=== PATIENT | female | born 1995 | race Caucasian/White ===

== ENCOUNTER 2023-02-02 19:15 | Emergency (ER) | payer OTHER, SELFPAY ==
[2023-02-02 19:25] VITALS: BP 122/88; PULSE 80; RESP 20; TEMP 36.6; O2SAT 99; BMI 35.2
[2023-02-02] MEDS: METOCLOPRAMIDE 10 MG/2 ML INJ IV (20:13)
[2023-02-02] MEDS: SODIUM CHLORIDE 0.9% 1,000 ML 1000 ML IV (20:13)
[2023-02-02 20:20] LABS: Add Manual Diff / Slide Review NO; Basophils Absolute Auto 0 /uL (0-100); Basophils Percent Auto 0.4 % (0-2); Eosinophils Absolute Auto 0 /uL (0-450); Eosinophils Percent Auto 0.3 % (2-4); Hematocrit 37.4 % (36-46); Hemoglobin 12.9 g/dL (12.0-16.0); Lymphocytes Absolute Auto 2300 /uL (1100-4500); Lymphocytes Percent Auto 18.2 % (25-40); Mean Corpuscular HGB Conc 34.5 % (30-36); Mean Corpuscular Hemoglobin 29.6 PG (26-34); Mean Corpuscular Volume 85.6 fL (80-100); Monocytes Absolute Auto 500 /uL (0-900); Monocytes Percent Auto 3.9 % (3-14); Neutrophils Absolute Auto 9600 /uL (1500-7000); Neutrophils Percent Auto 77.2 % (50-75); Platelet Count 267 X10^3/uL (150-400); Red Blood Cell Count 4.37 X10^6/uL (4.0-5.2); Red Cell Distribution Width 14.5 % (11.6-14.8); White Blood Cell Count 12.5 X10^3/uL (4.5-11.0)
[2023-02-02 20:33] LABS: Alanine Aminotransferase 17 IU/L (<35); Albumin 3.9 g/dL (3.5-5.0); Albumin Globulin Ratio 1.1 (1.0-2.8); Alkaline Phosphatase 55 U/L (38-126); Aspartate Aminotransferase 23 IU/L (14-36); BUN Creatinine Ratio 24.5 (6-22); Bilirubin Total 0.3 mg/dL (0.2-1.3); Blood Urea Nitrogen 13 mg/dL (7-17); Calcium 8.8 mg/dL (8.4-10.2); Carbon Dioxide 21 mmol/L (22-32); Chloride 103 mmol/L (98-107); Estimated Glomerular Filt Rate > 60 mL/min (>60); Globulin 3.4 g/dL (1.7-4.1); Glucose 85 mg/dL (70-100); HEMOLYSIS < 15 (0-50); Sodium 135 mmol/L (137-145); Total Protein 7.3 g/dL (6.3-8.2)
--- NOTE | 2023-02-02 20:33 | ED_ITS ---
HPI - Nausea/Vomiting/Diarrhea General Chief complaint: Nausea/Vomiting/Diarrhea Stated complaint: hypernemesis Time Seen by Provider: 02/02/23 21:10 Source: patient Mode of arrival: Wheelchair History of Present Illness HPI Narrative: Patient is a 47-year-old female presenting today with nausea vomiting. She is currently 16 weeks reports that she is been vomiting daily her whole today she threw up significantly more amounts previously. She reports [employer] does not work for her. She denies any significant abdominal pain or vaginal bleeding. She was previously dizzy and lightheaded she is now received a L of fluid and Reglan overall feeling much better. She is [place] to get insurance to approve regular IV infusions for her but they have not yet. She reports that during her last she vomited until the end Related Data Previous Rx's Medication Instructions Recorded metoclopramide HCl 10 mg tablet 10 mg PO Q6H PRN nausea and 02/02/23 (Reglan) vomiting #30 tabs Allergies Allergy/AdvReac Type Severity Reaction Status Date / Time No Known Drug Allergies Allergy Verified 02/02/23 19:46 Review of Systems Review of Systems ROS Unobtainable: All systems reviewed & are unremarkable except as noted in HPI and below Patient History Social History Smoking Status: Never smoker Smoking Status: Never smoker Substance Use Type: does not use Exam Initial Vital Signs Initial Vital Signs: Vital Signs Temperature 97.9 F 02/02/23 19:25 Pulse Rate 80 02/02/23 19:25 Respiratory Rate 20 02/02/23 19:25 Blood Pressure 122/88 02/02/23 19:25 Pulse Oximetry 99 02/02/23 19:25 Oxygen Delivery Method Room Air 02/02/23 19:25 GENERAL: Alert 27-year-old female and in no acute distress. HEENT: Head atraumatic,EOMI, pupils reactive, face symmetric, moist mucous membranes CARDIOVASCULAR: Regular rate and rhythm without murmurs, rubs or gallops. RESPIRATORY: Breath sounds equal bilaterally, no wheezes rales or rhonchi. ABDOMEN: Soft, nontender. Normoactive bowel sounds all 4 quadrants. No guarding or rebound. Gravid nontender EXTREMITIES: Normal range of motion, no clubbing or edema. Neurovascularly intact NEUROLOGICAL: Alert and oriented x4.Normal gait and speech. SKIN: Warm, dry, no laceration, no petechiae, no rashes or lesions. Course Orders Ordered: ED Orders 02/02/23 20:09 CBC Auto Diff [Complete Blood Count AUTO DIFF] Stat CMP [Comprehensive Metabolic Panel] Stat 02/02/23 21:16 Urine Microscopic Stat Discontinued Medications Sodium Chloride (Normal Saline 0.9%) 1,000 mls @ 1,000 mls/hr IV BOLUS ONE Stop: 02/02/23 20:43 Last Infusion: 02/02/23 21:23 Dose: 0 mls/hr Documented By: Admin: 02/02/23 20:13 Dose: 1,000 mls/hr Documented By: DOMONIQUE Metoclopramide HCl (Metoclopramide 10 Mg/2 Ml Inj) 10 mg IV NOW ONE Stop: 02/02/23 19:46 Last Admin: 02/02/23 20:13 Dose: 10 mg Documented By: DOMONIQUE Vital Signs Vital signs: Vital Signs - 8 hr 02/02/23 19:25 02/02/23 20:51 02/02/23 20:51 Temperature 97.9 F Pulse Rate 80 78 Respiratory Rate 20 Blood Pressure 122/88 104/52 L Pulse Oximetry 99 100 Oxygen Delivery Method Room Air Room Air 02/02/23 21:00 02/02/23 21:00 02/02/23 21:30 Temperature Pulse Rate 89 Respiratory Rate Blood Pressure 113/64 95/54 L Pulse Oximetry 100 Oxygen Delivery Method Room Air 02/02/23 21:30 02/02/23 21:42 02/02/23 21:42 Temperature Pulse Rate 73 82 Respiratory Rate Blood Pressure 101/59 L Pulse Oximetry 100 100 Oxygen Delivery Method Room Air Room Air MDM - Nausea/Vomiting/Diarrhea Lab Data 02/02/23 20:09 02/02/23 20:09 Labs: Lab Results 02/02/23 02/02/23 02/02/23 Range/Units 20:09 20:09 21:16 WBC 12.5 H (4.5-11.0) X10^3/uL RBC 4.37 (4.0-5.2) X10^6/uL Hgb 12.9 (12.0-16.0) g/dL Hct 37.4 (36-46) % MCV 85.6 (80-100) fL MCH 29.6 (26-34) PG MCHC 34.5 (30-36) % RDW 14.5 (11.6-14.8) % Plt Count 267 (150-400) X10^3/uL Neut % (Auto) 77.2 H (50-75) % Lymph % (Auto) 18.2 L (25-40) % [place] % (Auto) 3.9 (3-14) % Eos % (Auto) 0.3 L (2-4) % Baso % (Auto) 0.4 (0-2) % Neut # (Auto) 9600 H (0559-4420) /uL Lymph # (Auto) 2300 (0805-3501) /uL [place] # (Auto) 500 (0-900) /uL Eos # (Auto) 0 (0-450) /uL Baso # (Auto) 0 (0-100) /uL Sodium 135 L (137-145) mmol/L Potassium 4.0 (3.4-5.1) mmol/L Chloride 103 (98-107) mmol/L Carbon Dioxide 21 L (22-32) mmol/L BUN 13 (7-17) mg/dL Creatinine 0.53 (0.52-1.04) mg/dL Estimated GFR > 60 (>60) mL/min BUN/Creatinine Ratio 24.5 H (6-22) Glucose 85 (70-100) mg/dL Calcium 8.8 (8.4-10.2) mg/dL Total Bilirubin 0.3 (0.2-1.3) mg/dL AST 23 (14-36) IU/L ALT 17 (<35) IU/L Alkaline Phosphatase 55 (38-126) U/L Total Protein 7.3 (6.3-8.2) g/dL Albumin 3.9 (3.5-5.0) g/dL Globulin 3.4 (1.7-4.1) g/dL Albumin/Globulin Ratio 1.1 (1.0-2.8) Urine RBC 0-1/hpf (0-5/HPF) Urine WBC 0-1/hpf (0-5/HPF) Ur Squamous Epith Cells 5-10 /hpf H (0-5/HPF) Ur Transition Epith Cell 0-1/hpf (0-5/HPF) Other Crystals Few amorphous Urine Bacteria None seen (None) Ur Culture Indicated? Cult not indicated Urine Dip Bedside Urine Glucose Negative Bedside Urine Bilirubin + 1 Bedside Urine Ketone +/- 5 Urine Specific [place] 1.010 Bedside Urine Occult Blood - Negative Bedside Urine pH 7.5 Bedside Urine Protein + 30 Bedside Urine Urobilinogen - Negative Bedside Urine Nitrite - Negative Bedside Urine Leukocytes - Negative Esterase MDM Narrative Medical decision making narrative: Patient is a 27-year-old female hyperemesis gravidarum presenting today with nausea vomiting. Was dizzy and lightheaded now feeling better after fluids and Reglan. Urinalysis does not any evidence of UTI blood work has been reviewed no evidence of significant electrolyte abnormality no elevated WBC. At this time she is tolerating fluids and can go home. heart tones 150. Discharge Plan Departure Patient Disposition: Home Clinical Impression: Hyperemesis gravidarum Instructions: DI for Hyperemesis Gravidarum Activity Restrictions/Additional Instructions: *You have been diagnosed with hyperemesis gravidarum *What to do: Increase fluids as tolerated recommend Pedialyte or Gatorade *Continue to take medications as directed Reglan 10 mg every 6 hours if needed for nausea vomiting--> [facility] *Follow up with your primary care provider in 2-3 days or call [phone] *Return to ER if you should have increased vomiting dizziness lightheadedness abdominal pain vaginal bleeding [or] any new, worsening or concerning symptoms Prescriptions: New metoclopramide HCl [Reglan] 10 mg tablet 10 mg PO Q6H PRN (Reason: nausea and vomiting) Qty: 30 0RF Stand Alone Forms: Patient Portal/API
[2023-02-02 20:51] VITALS: BP 104/52; PULSE 78; O2SAT 100
[2023-02-02 21:00] VITALS: BP 113/64; PULSE 89; O2SAT 100
[2023-02-02 21:30] VITALS: BP 95/54; PULSE 73; O2SAT 100
[2023-02-02 21:42] VITALS: BP 101/59; PULSE 82; O2SAT 100
[2023-02-02 21:59] LABS: Bacteria Urine None Seen; Culture Indicated Urine Cult Not Indicated; Other Crystals Urine Few Amorphous; RBC Urine 0-1/HPF (0-5/HPF); Squamous Epithelial Cell Urine 5-10 /HPF (0-5/HPF); Transitional Epi Cells Urine 0-1/HPF (0-5/HPF); WBC Urine 0-1/HPF (0-5/HPF)
== END 2023-02-02 21:47 | disposition home or self-care (01) ==
PROVIDERS: Emergency Provider Emergency Medicine
DX: O21.0 Mild hyperemesis gravidarum (principal); Z3A.16 16 weeks gestation of pregnancy
CPT/HCPCS: 36415; 80053; 81003; 81015; 85025; 96361; 96374; 99284; J2765